=== PATIENT | female | born 1975 | race Caucasian/White ===

== ENCOUNTER 2017-02-17 18:06 | Emergency (ER) | payer MEDICAID ==
[~2017-02-17] VITALS: Ht 154.9 cm; Wt 83.9 kg
[2017-02-17 22:50] VITALS: BP 125/72
== END 2017-02-17 22:50 | disposition home or self-care (01) ==
LOC: ED 18:06
DX: S93.401A Sprain of unspecified ligament of right ankle, initial encounter (principal); M72.2 Plantar fascial fibromatosis; M76.891 Other specified enthesopathies of right lower limb, excluding foot; X58.XXXA Exposure to other specified factors, initial encounter; Y93.89 Activity, other specified; Y99.8 Other external cause status; Y92.89 Other specified places as the place of occurrence of the external cause
CPT/HCPCS: J1885

== ENCOUNTER 2019-04-14 13:46 | Emergency (ER) | payer MEDICAID ==
[~2019-04-14] VITALS: Ht 157.5 cm; Wt 92.1 kg
[2019-04-14 13:53] VITALS: Ht 157.5 cm; Wt 92.1 kg
[2019-04-14 16:39] LABS: BASOPHIL % 0.5 % (0-2); PLATELET COUNT 259 x10^3mcL (130-400); RED CELL DISTRIBUTION WIDTH 13.2 % (11.5-14.5)
[2019-04-14 16:40] LABS: UA SPECIFIC GRAVITY 1.015 (1.005-1.035); microscopic required? YES; urine erythrocyte 3+ (NEGATIVE)
[2019-04-14 17:38] LABS: CALCIUM 9.6 mg/dL (8.5-10.1); CARBON DIOXIDE 27.4 mmol/L (21-32); CHLORIDE SERUM 105 mmol/L (98-107); CREATININE SERUM 0.8 mg/dL (0.6-1.0); GFR1 > 60 mL/min; GLUCOSE SERUM 78 mg/dL (74-106); POTASSIUM SERUM 3.6 mmol/L (3.5-5.1); SODIUM SERUM 144 mmol/L (136-145)
[2019-04-14 17:42] LABS: ALBUMIN 3.7 g/dL (3.4-5.0); ALKALINE PHOSPHATASE 69 U/L (46-116); ALT/SGPT 133 U/L (14-59); AST/SGOT 38 U/L (15-37); BILIRUBIN TOTAL 0.24 mg/dL (0.20-1.00); LIPASE 141 IU/L (73-393); TOTAL PROTEIN, SERUM 7.4 g/dL (6.4-8.2)
[2019-04-14 18:33] VITALS: BP 151/106
== END 2019-04-14 19:16 | disposition home or self-care (01) ==
LOC: ED 13:46
PROVIDERS: Emergency Medicine
DX: N39.0 Urinary tract infection, site not specified (principal); Z90.49 Acquired absence of other specified parts of digestive tract
CPT/HCPCS: 36415; J1885; Q0162

== ENCOUNTER 2019-07-02 02:21 | Emergency (ER) | payer MEDICAID ==
[~2019-07-02] VITALS: Ht 157.5 cm; Wt 86.2 kg
[2019-07-02 04:20] VITALS: BP 143/93
== END 2019-07-02 04:20 | disposition home or self-care (01) ==
LOC: ED 02:21
DX: R05 Cough (principal); R50.9 Fever, unspecified; R07.89 Other chest pain
CPT/HCPCS: Q0092

== ENCOUNTER 2020-10-24 19:07 | Emergency (ER) | payer MEDICAID ==
[~2020-10-24] VITALS: Ht 152.4 cm; Wt 81.6 kg
[2020-10-24 19:57] VITALS: BP 134/93; Ht 152.4 cm; Wt 81.6 kg
[2020-10-24 22:55] LABS: PLATELET COUNT 332 x10^3mcL (179-408); RED CELL DISTRIBUTION WIDTH 13.6 % (12.3-17.7)
[2020-10-24 23:00] LABS: CALCIUM 8.8 mg/dL (8.5-10.1); CARBON DIOXIDE 31.8 mmol/L (21-32); CHLORIDE SERUM 104 mmol/L (98-107); CREATININE SERUM 0.9 mg/dL (0.6-1.0); GFR1 > 60 mL/min; GLUCOSE SERUM 91 mg/dL (74-106); POTASSIUM SERUM 4.1 mmol/L (3.5-5.1); SODIUM SERUM 142 mmol/L (136-145)
[2020-10-24 23:08] LABS: ALBUMIN 3.5 g/dL (3.4-5.0); ALKALINE PHOSPHATASE 72 U/L (46-116); ALT/SGPT 44 U/L (14-59); AST/SGOT 11 U/L (15-37); BILIRUBIN TOTAL 0.2 mg/dL (0.20-1.00); LIPASE 92 IU/L (73-393); TOTAL PROTEIN, SERUM 7.2 g/dL (6.4-8.2)
== END 2020-10-24 23:58 | disposition home or self-care (01) ==
LOC: ED 19:07
PROVIDERS: Emergency Medicine
DX: R07.89 Other chest pain (principal); R06.02 Shortness of breath
CPT/HCPCS: 83880